=== PATIENT | male | born 1980 | race Two or more races ===

== ENCOUNTER 2018-10-31 15:57 | Emergency (ER) | payer OTHER ==
[~2018-10-31] VITALS: Ht 172.7 cm; Wt 104.3 kg
--- NOTE | 2018-10-31 16:07 | NUR ---
SUNSHINE ARROYO AT BEDSIDE FOR MSE.
--- NOTE | 2018-10-31 16:10 | NUR ---
PT IS A/OX4, PRESENTS TO THE ER C/O R-SIDED FACIAL WEAKNESS. PT IS OF CLEAR SPEECH. THERE IS A R-SIDED FACIAL DROOP, BUT THE UPPER AND LOWER PART OF THE R FACE IS INVOLVED. NO EXTREMITY WEAKNESS, PT IS ABLE TO SELF-AMBULATE W/O DIFFICULTY. PT DENIES PAIN, C/P, SOB, N/V/D, DIZZINESS, HEADACHE.
--- NOTE | 2018-10-31 16:21 | NUR ---
Patient discharged to home in stable conditon. Written and verbal after care instructions given. Patient verbalizes understanding of instructions. ALL BELONGINGS W/ PT. PT SELF-AMBULATED W/O DIFFICULTY.
[2018-10-31 16:22] VITALS: BP 106/59
== END 2018-10-31 16:23 | disposition home or self-care (01) ==
LOC: ER 15:59
DX: G51.0 Bell's palsy (principal); I10 Essential (primary) hypertension; F17.210 Nicotine dependence, cigarettes, uncomplicated
CPT/HCPCS: A4663

== ENCOUNTER 2018-11-01 15:02 | Emergency (ER) | payer OTHER ==
[~2018-11-01] VITALS: Ht 172.7 cm; Wt 104.3 kg
--- NOTE | 2018-11-01 15:44 | NUR ---
Dr Cheung at the bedside for MSE.
[2018-11-01 15:58] VITALS: BP 135/78
--- NOTE | 2018-11-01 16:02 | NUR ---
Patient discharged to home in stable conditon. Written and verbal after care instructions given. Patient verbalizes understanding of instructions.
== END 2018-11-01 16:04 | disposition home or self-care (01) ==
LOC: ER 15:03
DX: G51.0 Bell's palsy (principal); I10 Essential (primary) hypertension; F17.210 Nicotine dependence, cigarettes, uncomplicated
CPT/HCPCS: A4663